=== PATIENT | male | born 2000 | race African-American/Black ===

== ENCOUNTER 2024-03-14 20:14 | Emergency (ER) | payer OTHER ==
[2024-03-14] MEDS ORDERED: Bacitracin 1 PK ONE (20:58)
[2024-03-14] MEDS ORDERED: Boostrix 0.5 ML (Tdap) VIAL (>/=7 yrs of age) ONE (20:59)
== END 2024-03-14 21:38 | disposition home or self-care (01) ==
LOC: CSHERS 20:14
DX: T22.212A Burn of second degree of left forearm, initial encounter (principal); X77.8XXA Intentional self-harm by other hot objects, initial encounter; Z23 Encounter for immunization
CPT/HCPCS: 90471; 90715

== ENCOUNTER 2025-06-20 18:45 | Emergency (ER) | payer OTHER ==
[2025-06-20 19:40] LABS: #Basophils 0.04 10x3/uL (0.0-0.2); #Eosinophils 0.07 10x3/uL (0.0-0.5); #Monocytes 0.66 10x3/uL (0.0-1.1); #Neutrophils 13.81 10x3/uL (1.5-8.4); %Basophils 0.3 % (0.0-2.0); %Eosinophils 0.5 % (0.0-6.0); %Lymphocytes 4.5 % (18.0-47.0); %Monocytes 4.3 % (0.0-10.0); %Neutrophils 90.2 % (40.0-75.0); Hematocrit 41.2 % (38.8-50.0); Hemoglobin 14.0 g/dL (13.5-17.5); Mean Corpuscular Hemoglobin 28.9 pg (27.0-33.0); Mean Corpuscular Volume 84.9 fL (81.2-95.1); Platelet Count 386 10x3/uL (150-450); Red Blood Cell (RBC) Count 4.85 10x6/uL (4.32-5.72); White Blood Cell (WBC) Count 15.30 10x3/uL (3.5-10.5)
[2025-06-20 20:19] LABS: ALT (SGPT) 17 U/L (Less than 45); AST (SGOT) 26 U/L (11-34); Albumin 5.1 g/dL (3.1-4.5); Alkaline Phosphatase 74 U/L (40-110); Anion Gap 17 mmol/L (10-20); BUN (Urea Nitrogen) 13 mg/dL (8.9-20.6); Bilirubin, Total 1.2 mg/dL (0.3-1.2); Calc. Creatinine Clearance 0 mL/min (70-130); Calcium 10.5 mg/dL (7.8-10.44); Carbon Dioxide 25 mmol/L (22-29); Chloride 103 mmol/L (98-107); Globulin 4.0 g/dL (2.4-3.5); Glucose 93 mg/dL (70-105); Potassium 4.5 mmol/L (3.5-5.1); Sodium 140 mmol/L (136-145)
== END 2025-06-20 21:17 ==
LOC: CSHERS 18:45
DX: J45.909 Unspecified asthma, uncomplicated (principal); F17.290 Nicotine dependence, other tobacco product, uncomplicated
CPT/HCPCS: 36415; 71045; 80053; 85025; 94645; 94760; 96374; J2919; J7620